=== PATIENT | female | born 1960 | race Caucasian/White ===

== ENCOUNTER 2023-09-17 20:14 | Emergency (ER) | payer MEDICARE ==
[2023-09-17] MEDS: fentaNYL 100 MCG/2 ML SDV IVPUSH ONE (20:24)
[2023-09-17] MEDS: Sodium Chloride 0.9% 500 ML IV ONE (20:34)
[2023-09-17] MEDS: fentaNYL 100 MCG/2 ML SDV ONE (20:34)
[2023-09-17] MEDS: Ketamine 200 MG/20 ML MDV IVPUSH ONE (20:57)
== END 2023-09-17 23:35 | disposition home or self-care (01) ==
LOC: JD.ED 20:14
DX: S42.252A Displaced fracture of greater tuberosity of left humerus, initial encounter for closed fracture (principal); Z79.899 Other long term (current) drug therapy; Z88.8 Allergy status to other drugs, medicaments and biological substances; W01.0XXA Fall on same level from slipping, tripping and stumbling without subsequent striking against object, initial encounter
CPT/HCPCS: 23650; 73030; 96361; 96374; 99152; 99284; J3010; J7030; 99153; J3490